=== PATIENT | female | born 1985 | race Caucasian/White ===

== ENCOUNTER 2022-03-07 09:56 | Outpatient (CLI) | payer BC | END 2022-03-07 09:57 | disposition home or self-care (01) | LOC: CSHLAB 09:56 | PROVIDERS: ATTEND Student in an Organized Health Care Education/Training Program | DX: Z20.822 Contact with and (suspected) exposure to COVID-19 (principal) | CPT/HCPCS: 87811 ==

== ENCOUNTER 2022-03-11 19:00 | Inpatient (IN) | payer BC ==
[2022-03-11 20:31] VITALS: BMI 24.3
[2022-03-11] MEDS ORDERED: HYDROcodone/Acetaminophen 5/325 mg Tablet PO PRN (21:53)
[2022-03-11] MEDS ORDERED: Methylergonovine 0.2 MG/ML VIAL IM PRN (21:53)
[2022-03-11] MEDS ORDERED: Lidocaine 1% (PF) 30 ML VIAL SC PRN (21:53)
[2022-03-11] MEDS ORDERED: Acetaminophen 500 MG TAB PO PRN (21:53)
[2022-03-11] MEDS ORDERED: Carboprost 250 MCG/ML AMP IM PRN (21:53)
[2022-03-11] MEDS ORDERED: Zolpidem Tartrate 5 MG TAB PO PRN (21:53)
[2022-03-11] MEDS ORDERED: Diphenoxylate HCl/Atropine Tablet PO PRN (21:53)
[2022-03-11] MEDS ORDERED: Promethazine HCl 25 MG/ML VIAL IM PRN (21:53)
[2022-03-11] MEDS ORDERED: Misoprostol 200 MCG TAB PR PRN (21:53)
[2022-03-11] MEDS ORDERED: hydrALAZINE 20 MG/ML VIAL SLOW IVP PRN (21:53)
[2022-03-11] MEDS ORDERED: Ibuprofen 800 MG TAB PO PRN (21:53)
[2022-03-11] MEDS ORDERED: Ondansetron PF 4 MG/2 ML Vial IVP PRN (21:53)
[2022-03-11] MEDS ORDERED: Butorphanol Tartrate 1 MG/ML VIAL SLOW IVP PRN (21:53)
[2022-03-11 22:11] LABS: Hemoglobin 10.7 g/dL (12.0-15.5); Mean Corpuscular HGB CONC 34.3 g/dL (32.0-36.0); Mean Corpuscular Hemoglobin 30.2 pg (27.0-33.0); Mean Corpuscular Volume 88.1 fl (81.6-98.3); Mean Platelet Volume 12.4 fl (7.4-10.4); Platelet Count 176 10x3/uL (150-450); RBC Distribution Width 13.4 % (11.5-14.5); Red Blood Cell (RBC) Count 3.54 10x6/uL (3.90-5.03); White Blood Cell (WBC) Count 9.5 10x3/uL (3.5-10.5)
[2022-03-11] MEDS: Misoprostol 100 MCG TAB VAG SCH (22:34)
[2022-03-11] MEDS ORDERED: Misoprostol 100 MCG TAB ONE (22:35)
[2022-03-11 22:37] LABS: Hep B Surf Ag Non-Reactive S/CO (NonReactive); Syphilis Antibody Nonreactive (Nonreactive); Syphilis Antibody Index 0.02 S/CO (<1.00 Non-Reactive)
[2022-03-11 22:39] LABS: HBSAg Index 0.23 S/CO (0-0.99)
[2022-03-11] MEDS: Lactated Ringer's 1,000 ML IV SCH (22:39)
[2022-03-11] MEDS ORDERED: NS w/ Oxytocin 30 units 500 ML IV SCH ×2 (23:00)
[2022-03-12] MEDS: Misoprostol 100 MCG TAB VAG SCH (02:41)
[2022-03-12] MEDS ORDERED: Fentanyl 2 mcg/Bup 0.1% Cadd 100 ML ONE (04:53)
[2022-03-12] MEDS ORDERED: Bupivacaine 0.25% HCL 30 ML VIAL ONE ×2 (05:18→13:30)
[2022-03-12] MEDS ORDERED: Acetaminophen 325 MG TAB PO PRN (05:43)
[2022-03-12] MEDS ORDERED: Moisturizing Cream (Eucerin) 113 GM JAR TOP PRN (05:43)
[2022-03-12] MEDS ORDERED: Promethazine HCl 25 MG/ML VIAL IM PRN ×2 (05:43→23:00)
[2022-03-12] MEDS ORDERED: Naloxone HCl 0.4 mg/ml Vial IVP PRN ×2 (05:43)
[2022-03-12] MEDS ORDERED: diphenhydrAMINE 50 MG/ML VIAL IVP PRN (05:43)
[2022-03-12] MEDS ORDERED: Lactated Ringer's 500 ML IV PRN (05:43)
[2022-03-12] MEDS ORDERED: ePHEDrine Sulfate 50 MG/10 ML VIAL SLOW IVP PRN (05:43)
[2022-03-12] MEDS ORDERED: Ondansetron PF 4 MG/2 ML Vial IVP PRN ×2 (05:43→23:00)
[2022-03-12] MEDS ORDERED: Fentanyl 2 mcg/Bupivacaine 0.1% Cassette 100 ML EPIDURAL SCH (05:45)
[2022-03-12] MEDS ORDERED: Communication Order-Pharmacy FS SCH (05:45)
[2022-03-12] MEDS ORDERED: Ondansetron PF 4 MG/2 ML Vial ONE (16:00)
[2022-03-12] MEDS ORDERED: hydrALAZINE 20 MG/ML VIAL SLOW IVP PRN (23:00)
[2022-03-12] MEDS ORDERED: Lanolin Ointment 7 GM TUBE TOP PRN (23:00)
[2022-03-12] MEDS ORDERED: Preparation H Ointment 28 GM TUBE PR PRN (23:00)
[2022-03-12] MEDS ORDERED: Boostrix 0.5 ML (Tdap) VIAL IM ONE (23:00)
[2022-03-12] MEDS ORDERED: Bisacodyl 10 MG SUPP PR PRN (23:00)
[2022-03-12] MEDS ORDERED: Milk Of Magnesia 30 ML UDCUP PO PRN (23:00)
[2022-03-12] MEDS ORDERED: diphenhydrAMINE 25 MG CAP PO PRN (23:00)
[2022-03-12] MEDS ORDERED: Zolpidem Tartrate 5 MG TAB PO PRN (23:00)
[2022-03-12] MEDS ORDERED: Benzocaine-Menthol 82.5 ML CAN TOP PRN (23:00)
[2022-03-12] MEDS ORDERED: HYDROcodone/Acetaminophen 5/325 mg Tablet PO PRN ×2 (23:00)
[2022-03-12] MEDS ORDERED: Docusate 100 MG CAP PO SCH (23:30)
[2022-03-12] MEDS ORDERED: Ibuprofen 800 MG TAB PO SCH (23:30)
[2022-03-13] MEDS: Misoprostol 100 MCG TAB VAG SCH ×2 (00:51→00:52)
[2022-03-13] MEDS: Lactated Ringer's 1,000 ML IV SCH ×2 (00:52→00:53)
[2022-03-13] MEDS ORDERED: Ibuprofen 800 MG TAB PO SCH (06:00)
[2022-03-13] MEDS: Ferrous Sulfate 325 MG TAB PO SCH ×2 (07:27→14:58)
[2022-03-13] MEDS: Docusate 100 MG CAP PO SCH ×2 (08:37→21:34)
[2022-03-13] MEDS: Prenatal Vitamin 1 TAB PO SCH (08:37)
[2022-03-13] MEDS: Ibuprofen 800 MG TAB PO SCH ×3 (08:38→23:45)
[2022-03-14 07:26] VITALS: BP 109/71; TEMP 98.2
[2022-03-14] MEDS: Ferrous Sulfate 325 MG TAB PO SCH (07:28)
[2022-03-14] MEDS: Prenatal Vitamin 1 TAB PO SCH (08:07)
[2022-03-14] MEDS: Ibuprofen 800 MG TAB PO SCH (08:07)
[2022-03-14] MEDS: Docusate 100 MG CAP PO SCH (09:53)
== END 2022-03-14 13:35 | disposition home or self-care (01) | DRG 806 ==
LOC: CSHLD 19:59 → CSHPP 03-12 22:57
PROVIDERS: ADMIT Student in an Organized Health Care Education/Training Program; ATTEND Student in an Organized Health Care Education/Training Program
PROC: 10D07Z6 Extraction of Products of Conception, Vacuum, Via Natural or Artificial Opening (ICD-10-PCS; principal; 2022-03-12)
PROC: 3E0P7VZ Introduction of Hormone into Female Reproductive, Via Natural or Artificial Opening (ICD-10-PCS; 2022-03-12)
PROC: 3E0334Z Introduction of Serum, Toxoid and Vaccine into Peripheral Vein, Percutaneous Approach (ICD-10-PCS; 2022-03-12)
PROC: 0HQ9XZZ Repair Perineum Skin, External Approach (ICD-10-PCS; 2022-03-12)
DX: O42.02 Full-term premature rupture of membranes, onset of labor within 24 hours of rupture (principal); O99.354 Diseases of the nervous system complicating childbirth; Z37.0 Single live birth; Z3A.39 39 weeks gestation of pregnancy; F41.9 Anxiety disorder, unspecified; O99.344 Other mental disorders complicating childbirth; G43.909 Migraine, unspecified, not intractable, without status migrainosus; O26.893 Other specified pregnancy related conditions, third trimester; Z67.11 Type A blood, Rh negative; O70.0 First degree perineal laceration during delivery
CPT/HCPCS: 36415; 51702; 85027; 85461; 86780; 86850; 86870; 86900; 86901; 86905; 86922; 87340; 90384; 96372; J0595; J7120

== ENCOUNTER 2025-05-11 09:13 | Emergency (ER) | payer BC, SELFPAY ==
[2025-05-11] MEDS ORDERED: Lidocaine/Transparent Dressing 1 EACH KIT ONE ×2 (10:39→12:50)
[2025-05-11] MEDS ORDERED: Mineral Oil ENEMA ONE (12:06)
== END 2025-05-11 12:55 | disposition home or self-care (01) ==
LOC: CSHERS 09:13
DX: O99.891 Other specified diseases and conditions complicating pregnancy (principal); K59.00 Constipation, unspecified; Z3A.31 31 weeks gestation of pregnancy
CPT/HCPCS: 96372; 99283; J2270